=== PATIENT | female | born 1950 | race Caucasian/White ===

== ENCOUNTER → 2017-04-10 | Outpatient (CLI) | payer MEDICARE ==
[~2017-04-10] MED LIST: KEFLEX 500MG.500 MG PO; VIBRAMYCIN 100100 MG PO
--- NOTE | 2017-04-10 20:30 | RADIOLOGY REPORT PS360 ---
LUMBAR SPINE 5 VIEWS HISTORY: LOW BACK PAIN Patient Age: 66 years: Female Ordering Physician: MEI GARDNER TECHNIQUE: 5 view lumbar spine series COMPARISON :Previous lumbar spine series from 2009 FINDINGS Multilevel degenerative disc changes and disc space narrowing . Generous marginal osteophytes throughout the spine. These are particularly notable to the left at L1/2, L2/3, L4/5 . L5/S1. Disc space narrowing with vacuum phenomena most pronounced at this level & has shown progression since 2012 . Prominent Degenerative facet changes bilaterally also noted L4/5. Generous anterior marginal osteophytes which extend to the left more than right. Less pronounced degenerative facet changes. L3/ 4 Slight trace disc space narrowing posteriorly at L3/4 . Anterior marginal osteophytes L2/3 prominent anterior marginal osteophytes. Generous marginal osteophytes to the left . L1/2. Only Slight disc space narrowing posteriorly.. Marginal osteophytes most pronounced to the left the left T12/L1. Disc space narrowing and vacuum phenomena IMPRESSION: Multilevel degenerative disc changes. Generous marginal osteophytes throughout spine Progressive disc space narrowing and changes since 2012 most notable at L5/S1. Prominent facet arthropathy at this level noted as well
== END ==
LOC: RAD 16:21
DX: M54.5 Low back pain (principal)

== ENCOUNTER 2017-05-08 11:34 | Emergency (ER) | payer MEDICARE ==
[~2017-05-08] VITALS: Ht 167.6 cm; Wt 129.3 kg
[2017-05-08] MEDS ORDERED: METOPROLOL25 MG PO (11:44)
[2017-05-08] MEDS ORDERED: SPIRONOLACTONE25 MG NG (11:44)
[2017-05-08] MEDS ORDERED: JANUVIA50 MG PO (11:44)
[2017-05-08] MEDS ORDERED: AMLO2.5T PO (11:45)
[2017-05-08] MEDS ORDERED: GABAPENTIN300 MG PO (11:45)
[2017-05-08] MEDS ORDERED: PRAVACHOL 20MG.20 MG PO (11:45)
[2017-05-08] MEDS ORDERED: MYRBETRIQ25 MG PO (11:46)
[2017-05-08] MEDS ORDERED: VALSARTAN160 MG PO (11:46)
[2017-05-08] MEDS ORDERED: METFORMIN1000 MG PO (11:47)
--- OUTSIDE RECORDS SUMMARY | 2017-05-08 12:04 | External Medical Summary Rpt | CCD ---
Author Author , MAGUI KILGORE Address Unknown Phone [email or web address] Care Team Providers Care Scallop Binder Name Role Phone DONNY BOB, Unavailable Unavailable DONNY BOB [facility] Unavailable Unavailable INC, [facility] NASIMA LOWE HARVEY, Unavailable Unavailable [facility], Unavailable Unavailable [facility] [place] [facility] USZY SOLIMAN JR Unavailable Unavailable Anat, SUZY SOLIMAN JR PATHOLOGY & CYTOLOGY Unavailable Unavailable LAB, PATHOLOGY & CYTOLOGY LAB VAIBHAV KOROMA, Unavailable Unavailable VAIBHAV KOROMA JEFF A, Unavailable Unavailable СЕРГЕЙ ANGUIANO [facility] [id number], Unavailable Unavailable [facility] [id number] [facility] Unavailable Unavailable #[id number], [facility] #[id number] [facility] Unavailable Unavailable #591, [facility] #591 Purpose Continuity of Care Document - 10-16-2007 through 2016 Problems Code Diagnosis DOS Provider Status 64053 METHICILLIN 01-10-2008 VAIBHAV KOROMA SUSCEPTIBLE STAPH INF CCE & UNS SITE 51477 DIAB W/O 01-10-2008 [place] COMP TYPE VAIBHAV II/UNS NOT STATED UNCNTRL 6822 CELLULITIS 01-10-2008 GA, AND ABSCESS VAIBHAV OF TRUNK 6829 CELLULITIS 01-10-2008 [place] AND ABSCESS [facility] UNSPECIFIED MED SITE V090 INFECTION 01-10-2008 Rey KOROMA/MICROORGA VAIBHAV NISMS RESISTANT PENICILLINS 2724 OTHER AND 12-25-2007 [facility] HYPERLIPIDE KENISHA 4019 UNSPECIFIED 12-25-2007 [facility] HYPERTENSIO INC N 4618 OTHER ACUTE 11-22-2007 [facility] 0191 UNSPECIFIED 11-22-2007 [facility] 01819 OTHER 11-09-2007 [facility] SPECIFIED PRIMARY ERYTHEMATOU CARE S CONDITION CENTERINC OTHER 29068 OSTEOARTHRO 04-25-2008 [facility] S UNSPEC PRIMARY WHETHER CARE GEN/LOC CENTERINC UNSPEC SITE 4660 ACUTE 10-16-2007 [facility] Medications Na ND Rx Da Fi Fi Am Da Di Ph RX Ph St me C No te ll ll ou ys ag ar # ys at rm s nt no ma ic us Or Da si cy ia de te s n re d TR 00 05 07 00 18 22 WA 69 Ac AM 37 -0 -0 0. L- 75 TT ti AD 84 8- 3- 00 MA 08 MA ve OL 15 20 20 0 RT 9 N 10 08 08 NA HC 1 PH NC L AR Y 50 MA E CY MG #5 TA 91 BL ET 00 06 07 00 30 7 WA 44 No Ac 40 -1 -0 .0 L- 68 t ti 60 6- 3- 00 MA 88 Av ve 35 20 20 RT 5 ai 70 08 08 la 5 PH bl AR e MA CY #5 91 ME 00 05 07 00 90 30 WA 69 Ac TF 78 -0 -0 .0 L- 77 TT ti OR 15 8- 3- 00 MA 33 MA ve DE 05 20 20 RT 0 N N 06 08 08 NA HC 1 PH NC L AR Y 50 MA E 0 CY MG #5 TA 91 BL ET WAN 53 06 07 00 20 10 WA 69 No Ac LF 74 -1 -0 .0 L- 76 t ti AM 60 6- 3- 00 MA 02 Av ve ET 27 20 20 RT 4 ai HO 20 08 08 la XA 5 PH bl ZO AR e LE MA -T CY MP #5 DS 91 TA BL ET MD 00 06 07 00 15 3 WA 69 No Ac OM 78 -1 -0 .0 L- 76 t ti ET 11 6- 3- 00 MA 02 Av ve BANEGAS 83 20 20 RT 5 ai ZI 20 08 08 la NE 1 PH bl AR e 50 MA CY MG #5 TA 91 BL ET 00 06 07 01 30 7 WA 44 No Ac 40 -1 -0 .0 L- 68 t ti 60 6- 3- 00 MA 88 Av ve 35 20 20 RT 5 ai 70 08 08 la 5 PH bl AR e MA CY #5 91 [place] 51 04 06 00 30 [address] 67 -2 -1 .0 L- 75 TT ti AT 21 5- 2- 00 MA 07 MA ve IN 28 20 20 RT 5 N 90 08 08 NA 10 2 PH NC 0, AR Y 00 MA E 0 CY UN IT #5 /G 91 M CR EA M LI 54 02 06 02 12 30 WA 73 Ac SI 45 -0 -0 0. L- 26 TT ti NO 80 4- 5- 00 MA 96 MA ve MD 99 20 20 0 RT 9 N IL 61 08 08 NA 0 PH NC 20 A1 Y 0- E MG 15 69 TA BL ET DI 00 04 06 02 30 30 WA 73 Ac OV 07 -0 -0 .0 L- 37 TT ti AN 80 1- 5- 00 MA 28 MA ve 47 20 20 RT 9 N HC 13 08 08 NA T 4 PH NC 32 A1 Y 0- 0- E 12 15 .5 69 MG TA B FU 00 11 06 02 60 30 WA 73 Ac RO 37 -1 -0 .0 L- 13 TT ti SE 80 2- 5- 00 MA 09 MA ve DE 20 20 20 RT 5 N DE 80 07 08 NA 1 PH NC 20 A1 Y 0- E MG 15 69 TA BL ET OX 50 02 06 02 60 20 WA 73 Ac YB 11 -0 -0 .0 L- 26 TT ti UT 10 4- 5- 00 MA 97 MA ve YN 45 20 20 RT 0 N IN 60 08 08 NA 5 1 PH NC A1 Y MG 0- E 15 TA 69 BL ET GL 00 12 06 02 12 30 WA 73 Ac YB 09 -0 -0 0. L- 17 TT ti UR 38 6- 5- 00 MA 50 MA ve ID 34 20 20 0 RT 8 N E 40 07 08 NA 5 1 PH NC MG A1 Y 0- E TA 15 BL 69 ET 63 05 05 00 30 10 WA 73 No Ac 30 -0 -2 .0 L- 43 t ti 40 8- 2- 00 MA 91 Av ve 65 20 20 RT 8 ai 80 08 08 la 1 PH bl AR e MA CY #1 56 9 ME 00 05 05 00 90 30 WA 73 No Ac TF 78 -0 -2 .0 L- 43 t ti OR 15 8- 2- 00 MA 91 Av ve DE 05 20 20 RT 9 ai N 06 08 08 la HC 1 PH bl L AR e 50 MA 0 CY MG #1 TA 56 BL 9 ET TR 00 05 05 00 18 26 WA 73 No Ac AM 37 -0 -2 0. L- 43 t ti AD 84 8- 2- 00 MA 92 Av ve OL 15 20 20 0 RT 0 ai 10 08 08 la HC 1 PH bl L AR e 50 MA CY MG #1 TA 56 BL 9 ET 63 04 05 00 30 10 73 No Ac 30 -2 -0 .0 L- 41 t ti 40 5- 8- 00 MA 69 Av ve 65 20 20 RT 3 ai 90 08 08 la 1 PH bl A1 e 0- 15 69 00 12 05 01 30 30 WA 73 No Ac 24 -0 -0 .0 L- 17 t ti 50 6- 8- 00 MA 50 Av ve 04 20 20 RT 9 ai 11 07 08 la 1 PH bl A1 e 0- 15 69 GL 00 12 05 01 12 30 73 No Ac YB 09 -0 -0 0. L- 17 t ti UR 38 6- 8- 00 MA 50 Av ve ID 34 20 20 0 RT 8 ai E 40 07 08 la 5 1 PH bl MG A1 e 0- TA 15 BL 69 ET DI 00 04 05 01 30 30 73 No Ac OV 07 -0 -0 .0 L- 37 t ti AN 80 1- 8- 00 MA 28 Av ve 47 20 20 RT 9 ai HC 13 08 08 la T 4 PH bl 32 A1 e 0- 0- 12 15 .5 69 MG TA B FU 00 11 05 01 60 30 73 No Ac RO 37 -1 -0 .0 L- 13 t ti SE 80 2- 8- 00 MA 09 Av ve DE 20 20 20 RT 5 ai DE 80 07 08 la 1 PH bl 20 A1 e 0- MG 15 69 TA BL ET TR 00 04 05 01 10 12 73 No Ac AM 37 -0 -0 0. L- 37 t ti AD 84 1- 8- 00 MA 29 Av ve OL 15 20 20 0 RT 4 ai 10 08 08 la HC 1 PH bl L A1 e 50 0- 15 MG 69 TA BL ET LI 54 02 05 01 12 30 73 No Ac SI 45 -0 -0 0. L- 26 t ti NO 80 4- 8- 00 MA 96 Av ve MD 99 20 20 0 RT 9 ai IL 61 08 08 la 0 PH bl 20 A1 e 0- MG 15 69 TA BL ET OX 50 02 05 01 60 20 WA 73 No Ac YB 11 -0 -0 .0 L- 26 t ti UT 10 4- 8- 00 MA 97 Av ve YN 45 20 20 RT 0 ai IN 60 08 08 la 5 1 PH bl A1 e MG 0- 15 TA 69 BL ET ME 00 04 05 00 60 30 WA 73 No Ac TF 78 -2 -0 .0 L- 41 t ti OR 15 5- 8- 00 MA 69 Av ve DE 05 20 20 RT 4 ai N 06 08 08 la HC 1 PH bl L A1 e 50 0- 0 15 MG 69 TA BL ET 00 12 04 00 30 30 WA 73 No Ac 24 -0 -1 .0 L- 17 t ti 50 6- 0- 00 MA 50 Av ve 04 20 20 RT 9 ai 11 07 08 la 1 PH bl A1 e 0- 15 69 GL 00 12 04 00 12 30 73 No Ac YB 09 -0 -1 0. L- 17 t ti UR 38 6- 0- 00 MA 50 Av ve ID 34 20 20 0 RT 8 ai E 40 07 08 la 5 1 PH bl MG A1 e 0- TA 15 BL 69 ET 63 04 04 00 20 10 73 No Ac 30 -0 -1 .0 L- 37 t ti 40 1- 0- 00 MA 29 Av ve 72 20 20 RT 1 ai 66 08 08 la 0 PH bl A1 e 0- 15 69 DI 00 04 04 00 30 30 73 No Ac OV 07 -0 -1 .0 L- 37 t ti AN 80 1- 0- 00 MA 28 Av ve 47 20 20 RT 9 ai HC 13 08 08 la T 4 PH bl 32 A1 e 0- 0- 12 15 .5 69 MG TA B TR 00 04 04 00 10 12 WA 73 No Ac AM 37 -0 -1 0. L- 37 t ti AD 84 1- 0- 00 MA 29 Av ve OL 15 20 20 0 RT 4 ai 10 08 08 la HC 1 PH bl L A1 e 50 0- 15 MG 69 TA BL ET OX 50 02 04 00 60 20 73 No Ac YB 11 -0 -1 .0 L- 26 t ti UT 10 4- 0- 00 MA 97 Av ve YN 45 20 20 RT 0 ai IN 60 08 08 la 5 1 PH bl A1 e MG 0- 15 TA 69 BL ET FU 00 11 04 00 60 30 73 No Ac RO 37 -1 -1 .0 L- 13 t ti SE 80 2- 0- 00 MA 09 Av ve DE 20 20 20 RT 5 ai DE 80 07 08 la 1 PH bl 20 A1 e 0- MG 15 69 TA BL ET 17 04 04 00 17 23 73 No Ac 27 -0 -1 .0 L- 37 t ti 00 1- 0- 00 MA 29 Av ve 72 20 20 RT 3 ai 10 08 08 la 1 PH bl A1 e 0- 15 69 LI 00 02 04 00 12 30 WA 73 No Ac SI 37 -0 -1 0. L- 26 t ti NO 82 4- 0- 00 MA 96 Av ve MD 07 20 20 0 RT 9 ai IL 50 08 08 la 1 PH bl 20 A1 e 0- MG 15 69 TA BL ET Procedures Procedure DOS Code Location Performer Comment HOSPITAL [address] [facility] DIS[facility]GE [address] [place] [address] [facility]NAL [facility] MANAGEMEN MED T 30 MIN/< SBSQ [id number]/DAY INTERNAL [facility] 25 MED MINUTES SBSQ [address]/DAY [facility]NAL [facility] 25 MED MINUTES ANES 83721 [facility] [place] ANGUIANO 8 ANESTH СЕРГЕЙ A EXTREMITI OF THE ANT BLUEGRASS TRUNK & PERINEUM NOS LEVEL III 32464 PATHOLOGY PATHOLOGY SURG 8 & & PATHOLOGY CYTOLOGY CYTOLOGY LAB LAB GROSS&JAYMIE ROSCOPIC EXAM INCISION 21177 [place] K[place]OMA & VAIBHAV Barnett KARL DRAINAGE ABSCESS COMPLICAT ED/MULTIP LE SBSQ [address]/DAY INTERNAL [facility] 25 MED MINUTES OTH 8604 [facility] INCISION 8 [facility] W/DRAINAG INC INC E SKIN&SUBC UTANEOUS TISSUE EXCISIONA 8622 [facility]PENTERON L 8 [facility] DEBRIDEME INC INC NT WOUND INFECTION OR BURN SBSQ [address]/DAY INTERNAL [facility] 25 MED MINUTES INITIAL 51343 [place] INPATIENT 8 , VAIBHAV ESPOSITO CONSULT NEW/ESTAB PT 80 MIN SBSQ [address] CARE/DAY INTERNAL 25 MED MINUTES INITIAL [address] CARE/DAY INTERNAL 50 MED MINUTES CREATINE 18692 [facility] [place] 8 [place] [address] [facility] MAGNESIUM 8 [facility] LIPID 99108 [facility] PANEL 8 [facility] HEMOGLOBI 00035 [facility] N 8 [facility] GLYCOSYLA MARY A1C COLLECTIO 88808 [place] DODD VENOUS 8 PRIMARY DONNY E BLOOD CARE VENIPUNCT CENTERINC URE COMPREHEN 99015 [facility] SIVE 8 [facility] METABOLIC PANEL Encounters Encounter Start End Date Code Location Performer Type Date OFFICE 70958 [place] JUORDAN CARBONEEN 8 8 NICOLÁS ESTRELLA, T VISIT [facility]NAL [facility] 15 [facility] - 8 8 [facility] INPATIENT INC OFFICE 22740 [facility] DODD 8 8 [facility] E T VISIT CARE 25 CENTERINC MINUTES OFFICE 33921 [facility] D[facility]D 8 8 [facility] T VISIT CARE 25 CENTERINC MINUTES OFFICE 83085 [facility] DODD 8 8 [facility]IMARY DONNY E T NEW 30 CARE MINUTES CENTERINC
--- OUTSIDE RECORDS SUMMARY | 2017-05-08 12:04 | External Medical Summary Rpt | CCD ---
Author Author , MAGUI KILGORE Address Unknown Phone [email or web address] Care Team Providers Care Biogeographer Name Role Phone DONNY BOB, Unavailable Unavailable DONNY BOB [facility] Unavailable Unavailable INC, [facility] NASIMA LOWE HARVEY, Unavailable Unavailable [facility] [employer] [facility], Unavailable Unavailable [facility] [place] [facility] SUZY SOLIMAN JR Unavailable Unavailable Anat, SUZY SOLIMAN JR PATHOLOGY & CYTOLOGY Unavailable Unavailable LAB, PATHOLOGY & CYTOLOGY LAB VAIBHAV KOROMA, Unavailable Unavailable VAIBHAV KOROMA JEFF A, Unavailable Unavailable СЕРГЕЙ ANGUIANO [facility] [id number], Unavailable Unavailable [facility] [id number] [facility] Unavailable Unavailable #1569, [facility] #1569 [facility] Unavailable Unavailable #591, [facility] #591 Purpose Continuity of Care Document - 10-16-2007 through 2016 Problems Code Diagnosis DOS Provider Status 37824 METHICILLIN 01-10-2008 VAIBHAV KOROMA SUSCEPTIBLE STAPH INF CCE & UNS SITE 65563 DIAB W/O 01-10-2008 [place] COMP TYPE VAIBHAV [...] 11-22-2007 [facility] 9591 UNSPECIFIED 11-22-2007 [facility] 61770 OTHER 11-09-2007 [facility] SPECIFIED PRIMARY ERYTHEMATOU CARE S CONDITION CENTERINC OTHER 22473 OSTEOARTHRO 04-25-2008 [facility] S UNSPEC PRIMARY [...] 8- 3- 00 MA 33 MA ve MS 05 20 20 RT 0 N N [...] MP #5 DS 91 TA BL ET NE 00 06 07 00 15 3 WA [...] 4- 5- 00 MA 96 MA ve NE 99 20 20 0 RT 9 N [...] 2- 5- 00 MA 09 MA ve MS 20 20 20 RT 5 N DE [...] 8- 2- 00 MA 91 Av ve MS 05 20 20 RT 9 ai N [...] 2- 8- 00 MA 09 Av ve MS 20 20 20 RT 5 ai DE [...] 4- 8- 00 MA 96 Av ve NE 99 20 20 0 RT 9 ai [...] 5- 8- 00 MA 69 Av ve MS 05 20 20 RT 4 ai N [...] 2- 0- 00 MA 09 Av ve MS 20 20 20 RT 5 ai DE [...] 4- 0- 00 MA 96 Av ve NE 07 20 20 0 RT 9 ai IL 50 08 08 la 1 PH bl 20 A1 e 0- MG 15 69 TA BL ET Procedures Procedure DOS Code Location Performer Comment HOSPITAL [address] [facility] DISCHARGE [address] [place] [address] INTERNAL [facility] MANAGEMEN MED T 30 MIN/< SBSQ [address]/DAY [facility]NAL [facility] 25 MED MINUTES SBSQ [address]/DAY [facility] 25 MED MINUTES ANES 34071 [facility] [place] ANGUIANO 8 ANESTH СЕРГЕЙ A EXTREMITI OF THE ANT BLUEGRASS TRUNK & PERINEUM NOS LEVEL III 84397 PATHOLOGY PATHOLOGY SURG 8 & & PATHOLOGY CYTOLOGY CYTOLOGY LAB LAB GROSS&JAYMIE ROSCOPIC EXAM INCISION 56266 [place] & VAIBHAV Barnett KARL DRAINAGE ABSCESS COMPLICAT ED/MULTIP LE SBSQ [address]/DAY [facility] 25 MED MINUTES OTH 8604 [facility] VAZQUEZ INCISION 8 [facility] W/DRAINAG INC INC E SKIN&SUBC UTANEOUS TISSUE EXCISIONA 8622 [facility] L 8 [facility] DEBRIDEME INC INC NT WOUND INFECTION OR BURN SBSQ [address]/DAY [facility] 25 MED MINUTES INITIAL 51169 [place] INPATIENT 8 , VAIBHAV ESPOSITO CONSULT NEW/ESTAB PT 80 MIN SBSQ [address] CARE/DAY INTERNAL 25 MED MINUTES INITIAL [address] CARE/DAY INTERNAL 50 MED MINUTES CREATINE 20034 [facility] 8 [place] [address] [facility] MAGNESIUM 8 [facility] LIPID 39521 [facility] PANEL 8 [facility] HEMOGLOBI 41361 [facility] N 8 [facility] GLYCOSYLA MARY A1C COLLECTIO 12943 [place] DODD VENOUS 8 PRIMARY DONNY E BLOOD CARE VENIPUNCT CENTERINC URE COMPREHEN 76760 [facility] SIVE 8 [facility] METABOLIC PANEL Encounters Encounter Start End Date Code Location Performer Type Date OFFICE 44392 [place] JOURDAN CARBONEEN 8 8 NICOLÁS ESTRELLA, T VISIT [facility]NAL [facility] 15 [facility] - 8 8 [facility] INPATIENT INC OFFICE 05668 THAIS DODD 8 8 PRIMARY DONNY E T VISIT CARE 25 CENTERINC MINUTES OFFICE 18101 TH[facility] DODD 8 8 [facility]IMARY DONNY E T VISIT CARE 25 CENTERINC MINUTES OFFICE 13075 TH[facility] DODD 8 8 PRIMARY DONNY E T NEW 30 CARE MINUTES CENTERINC
--- OUTSIDE RECORDS SUMMARY | 2017-05-08 12:05 | External Medical Summary Rpt | CCD ---
Author Author , MAGUI MCBRIDEFLAKO Address Unknown Phone [email or web address] Care Team Providers Care Chick Room Supervisor Name Role Phone DONNY BOB, Unavailable Unavailable DONNY BOB [facility] Unavailable Unavailable INC, [facility] NASIMA LOWE HARVEY, Unavailable Unavailable [facility] [employer] [facility], Unavailable Unavailable [facility] [place] [facility] SUZY SOLIMAN JR Unavailable Unavailable Anat, SUZY SOLIMAN JR PATHOLOGY & CYTOLOGY Unavailable Unavailable LAB, PATHOLOGY & CYTOLOGY LAB VAIBHAV KOROMA, Unavailable Unavailable VAIBHAV KOROMA JEFF A, Unavailable Unavailable СЕРГЕЙ ANGUIANO [facility] [id number], Unavailable Unavailable [facility] [id number] [facility] Unavailable Unavailable #1569, [facility] #1569 [facility] Unavailable Unavailable #591, [facility] #591 Purpose Continuity of Care Document - 10-16-2007 through 2016 Problems Code Diagnosis DOS Provider Status 61667 METHICILLIN 01-10-2008 VAIBHAV KOROMA SUSCEPTIBLE STAPH INF CCE & UNS SITE 87438 DIAB W/O 01-10-2008 [place] COMP TYPE VAIBHAV [...] 11-22-2007 [facility] 7291 UNSPECIFIED 11-22-2007 [facility] 65162 OTHER 11-09-2007 [facility] CO SPECIFIED PRIMARY ERYTHEMATOU CARE S CONDITION CENTERINC OTHER 45134 OSTEOARTHRO 11-09-2007 [facility] CO S UNSPEC PRIMARY WHETHER CARE GEN/LOC CENTERINC UNSPEC SITE 4660 ACUTE 10-16-2007 [facility] Medications Na ND Rx Da Fi Fi Am Da Di Ph RX Ph St me C No te ll ll ou ys ag ar # ys at rm s nt no ma ic us Or Da si cy ia de te s n re d ME 00 05 07 00 90 30 WA 69 Ac TF 78 -0 -0 .0 L- 77 TT ti OR 15 8- 3- 00 MA 33 MA ve IL 05 20 20 RT 0 N N 06 08 08 NA HC 1 PH NC L AR Y 50 MA E 0 CY MG #5 TA 91 BL ET TR 00 05 07 00 18 22 [...] bl AR e MA CY #5 91 WAN 53 06 07 00 20 10 WA 69 No Ac LF 74 -1 -0 .0 L- 76 t ti AM 60 6- 3- 00 MA 02 Av ve ET 27 20 20 RT 4 ai HO 20 08 08 la XA 5 PH bl ZO AR e LE MA -T CY MP #5 DS 91 TA BL ET VT 00 06 07 00 15 3 WA [...] 4- 5- 00 MA 96 MA ve VT 99 20 20 0 RT 9 N IL 61 08 08 NA 0 PH NC 20 A1 Y 0- E MG 15 69 TA BL ET GL 00 12 06 02 12 30 WA 73 Ac YB 09 -0 -0 0. L- 17 TT ti UR 38 6- 5- 00 MA 50 MA ve ID 34 20 20 0 RT 8 N E 40 07 08 NA 5 1 PH NC MG A1 Y 0- E TA 15 BL 69 ET DI 00 04 06 02 30 [...] 2- 5- 00 MA 09 MA ve IL 20 20 20 RT 5 N DE [...] 0- E 15 TA 69 BL ET 63 05 05 00 30 10 [...] 8- 2- 00 MA 91 Av ve IL 05 20 20 RT 9 ai N [...] MG #1 TA 56 BL 9 ET ME 00 04 05 00 60 30 WA 73 No Ac TF 78 -2 -0 .0 L- 41 t ti OR 15 5- 8- 00 MA 69 Av ve IL 05 20 20 RT 4 ai N 06 08 08 la HC 1 PH bl L A1 e 50 0- 0 15 MG 69 TA BL ET FU 00 11 05 01 60 30 WA 73 No Ac RO 37 -1 -0 .0 L- 13 t ti SE 80 2- 8- 00 MA 09 Av ve IL 20 20 20 RT 5 ai DE 80 07 08 la 1 PH bl 20 A1 e 0- MG 15 69 TA BL ET LI 54 02 05 01 12 30 WA 73 No Ac SI 45 -0 -0 0. L- 26 t ti NO 80 4- 8- 00 MA 96 Av ve VT 99 20 20 0 RT 9 ai IL 61 08 08 la 0 PH bl 20 A1 e 0- MG 15 69 TA BL ET GL 00 12 05 01 12 30 WA 73 No Ac YB 09 -0 -0 0. L- 17 t ti UR 38 6- 8- 00 MA 50 Av ve ID 34 20 20 0 RT 8 ai E 40 07 08 la 5 1 PH bl MG A1 e 0- TA 15 BL 69 ET 63 04 05 00 30 10 WA 73 No Ac 30 -2 -0 .0 L- 41 t ti 40 5- 8- 00 MA 69 Av ve 65 20 20 RT 3 ai 90 08 08 la 1 PH bl A1 e 0- 15 69 DI 00 04 05 01 30 30 WA 73 No Ac OV 07 -0 -0 .0 L- 37 t ti AN 80 1- 8- 00 MA 28 Av ve 47 20 20 RT 9 ai HC 13 08 08 la T 4 PH bl 32 A1 e 0- 0- 12 15 .5 69 MG TA B TR 00 04 05 01 10 12 WA 73 No Ac AM 37 -0 -0 [...] MG 0- 15 TA 69 BL ET 00 12 05 01 30 30 73 No Ac 24 -0 -0 .0 L- 17 t ti 50 6- 8- 00 MA 50 Av ve 04 20 20 RT 9 ai 11 07 08 la 1 PH bl A1 e 0- 15 69 OX 50 02 04 00 60 20 WA 73 No Ac YB 11 -0 -1 .0 L- 26 t ti UT 10 4- 0- 00 MA 97 Av ve YN 45 20 20 RT 0 ai IN 60 08 08 la 5 1 PH bl A1 e MG 0- 15 TA 69 BL ET DI 00 04 04 00 30 30 WA 73 No Ac OV 07 -0 -1 .0 L- 37 t ti AN 80 1- 0- 00 MA 28 Av ve 47 20 20 RT 9 ai HC 13 08 08 la T 4 PH bl 32 A1 e 0- 0- 12 15 .5 69 MG TA B GL 00 12 04 00 12 30 [...] PH bl A1 e 0- 15 69 17 04 04 00 17 23 WA 73 No Ac 27 -0 -1 .0 L- 37 t ti 00 1- 0- 00 MA 29 Av ve 72 20 20 RT 3 ai 10 08 08 la 1 PH bl A1 e 0- 15 69 TR 00 04 04 00 10 12 73 No Ac AM 37 -0 -1 0. L- 37 t ti AD 84 1- 0- 00 MA 29 Av ve OL 15 20 20 0 RT 4 ai 10 08 08 la HC 1 PH bl L A1 e 50 0- 15 MG 69 TA BL ET FU 00 11 04 00 60 30 73 No Ac RO 37 -1 -1 .0 L- 13 t ti SE 80 2- 0- 00 MA 09 Av ve IL 20 20 20 RT 5 ai DE 80 07 08 la 1 PH bl 20 A1 e 0- MG 15 69 TA BL ET LI 00 02 04 00 12 30 73 No Ac SI 37 -0 -1 0. L- 26 t ti NO 82 4- 0- 00 MA 96 Av ve VT 07 20 20 0 RT 9 ai IL 50 08 08 la 1 PH bl 20 A1 e 0- MG 15 69 TA BL ET 00 12 04 00 30 30 WA 73 No Ac 24 -0 -1 .0 L- 17 t ti 50 6- 0- 00 MA 50 Av ve 04 20 20 RT 9 ai 11 07 08 la 1 PH bl A1 e 0- 15 69 Procedures Procedure DOS Code Location Performer Comment [facility] [address] [facility] DISCHARGE [address] [place] [address] INTERNAL [facility] MANAGEMEN MED T 30 MIN/< SBSQ [address]/DAY INTERNAL [facility] 25 MED MINUTES SBSQ [address]/DAY INTERNAL [facility] 25 MED MINUTES SBSQ [address]/DAY INTERNAL [facility] 25 MED MINUTES ANES 99982 [facility] ANGUIANO 8 ANESTH СЕРГЕЙ A EXTREMITI OF THE ANT BLUEGRASS TRUNK & PERINEUM NOS OTH 8604 [facility] INCISION 8 [facility] W/DRAINAG INC INC E SKIN&SUBC UTANEOUS TISSUE EXCISIONA 8622 [facility] L 8 [facility] DEBRIDEME INC INC NT WOUND INFECTION OR BURN LEVEL III 85805 PATHOLOGY PATHOLOGY SURG 8 & & PATHOLOGY CYTOLOGY CYTOLOGY LAB LAB GROSS&JAYMIE ROSCOPIC EXAM INCISION 95741 [place] & VAIBHAV Barnett KARL DRAINAGE ABSCESS COMPLICAT ED/MULTIP LE INITIAL 09784 [place] INPATIENT VAIBHAV Barnett KARL CONSULT NEW/ESTAB PT 80 MIN SBSQ [address]/DAY INTERNAL [facility] 25 MED MINUTES SBSQ [address] CARE/DAY INTERNAL 25 MED MINUTES INITIAL [address] CARE/DAY INTERNAL 50 MED MINUTES HEMOGLOBI 51270 [facility] N 8 [place] [facility] GLYCOSYLA MARY A1C LIPID 49447 [facility] PANEL 8 [facility] CREATINE 97438 [facility] KINASE 8 [facility] [address] [facility] MAGNESIUM 8 [facility] COLLECTIO 66654 Bora DODD VENOUS 8 PRIMARY DONNY E BLOOD CARE VENIPUNCT CENTERINC URE COMPREHEN 52709 [facility] SIVE 8 [facility] METABOLIC PANEL Encounters Encounter Start End Date Code Location Performer Type Date OFFICE 28353 [place] AYANNADAKOTAHussain PLASCENCIA 8 8 NICOLÁS JR, T VISIT [facility] [place] - 8 8 [facility] IN[facility] INC OFFICE [id number] THAIS DODD 8 8 PRIMARY DONNY E T VISIT CARE 25 CENTERINC MINUTES OFFICE 19933 THAIS DODD 8 8 PRIMARY DONNY E T VISIT CARE 25 CENTERINC MINUTES OFFICE 41777 THAIS DODD 8 8 PRIMARY DONNY E T NEW 30 CARE MINUTES CENTERINC
--- OUTSIDE RECORDS SUMMARY | 2017-05-08 12:05 | External Medical Summary Rpt | CCD ---
Author Author , MAGUI MCBRIDEFLAKO Address Unknown Phone [email or web address] Team Providers Care Brim Blocker Name Role Phone DONNY BOB, Unavailable Unavailable DONNY BOB [facility] Unavailable Unavailable INC, [facility] NASIMA LOWE HARVEY, Unavailable Unavailable [facility], Unavailable Unavailable [facility] SUZY SOLIMAN JR Unavailable Unavailable Anat, SUZY SOLIMAN JR [facility] Unavailable Unavailable LAB, [facility] VAIBHAV KOROMA, Unavailable Unavailable VAIBHAV KOROMA JEFF A, Unavailable Unavailable СЕРГЕЙ ANGUIANO [facility] [id number], Unavailable Unavailable [facility] [id number] [facility] Unavailable Unavailable #[id number], [id number] Unavailable Unavailable #591, [facility] Purpose Continuity of Care Document - 10-16-2007 through 2016 Problems Code Diagnosis DOS Provider Status 47891 METHICILLIN 01-10-2008 VAIBHAV KOROMA SUSCEPTIBLE STAPH INF CCE & UNS SITE 53731 DIAB W/O 01-10-2008 [place] COMP TYPE VAIBHAV [...] [facility] 27284 OTHER 11-09-2007 [place] [place] SPECIFIED PRIMARY ERYTHEMATOU CARE S CONDITION [facility] OTHER 60834 OSTEOARTHRO 11-09-2007 [place] [place] S UNSPEC PRIMARY [...] 8- 3- 00 MA 33 MA ve WV 05 20 20 RT 0 N N [...] MP #5 DS 91 TA BL ET [place] 00 06 07 00 15 3 WA [...] 4- 5- 00 MA 96 MA ve [place] 99 20 20 0 RT 9 N [...] 2- 5- 00 MA 09 MA ve WV 20 20 20 RT 5 N DE [...] 8- 2- 00 MA 91 Av ve WV 05 20 20 RT 9 ai N [...] 5- 8- 00 MA 69 Av ve WV 05 20 20 RT 4 ai N 06 08 08 la HC 1 PH bl L A1 e 50 0- 0 15 MG 69 TA BL ET FU 00 11 05 01 60 30 WA 73 No Ac RO 37 -1 -0 .0 L- 13 t ti SE 80 2- 8- 00 MA 09 Av ve WV 20 20 20 RT 5 ai DE 80 07 08 la 1 PH bl 20 A1 e 0- MG 15 69 TA BL ET LI 54 02 05 01 12 30 WA 73 No Ac SI 45 -0 -0 0. L- 26 t ti NO 80 4- 8- 00 MA 96 Av ve [place] 99 20 20 0 RT 9 ai [...] 2- 0- 00 MA 09 Av ve WV 20 20 20 RT 5 ai DE 80 07 08 la 1 PH bl 20 A1 e 0- MG 15 69 TA BL ET LI 00 02 04 00 12 30 73 No Ac SI 37 -0 -1 0. L- 26 t ti NO 82 4- 0- 00 MA 96 Av ve [place] 07 20 20 0 RT 9 ai [...] Procedures Procedure DOS Code Location Performer Comment [facility] [address] [facility] DISCHARGE [address] [place] [address] INTERNAL [facility] MANAGEMEN MED T 30 MIN/< SBSQ [id number]/DAY [facility]NAL [facility] 25 MED MINUTES SBSQ [address]/DAY [facility]NAL [facility] 25 MED MINUTES SBSQ [address]/DAY [facility] 25 MED MINUTES ANES 21276 [facility] ANGUIANO 8 ANESTH СЕРГЕЙ A EXTREMITI OF THE ANT [place]UE[place]ASS TRUNK & PERINEUM NOS OTH 8604 [facility] W/DRAINAG INC INC E SKIN&SUBC UTANEOUS TISSUE EXCISIONA 8622 [facility] L 8 [facility] DEBRIDEME INC INC NT WOUND INFECTION OR BURN LEVEL III 48237 PATHOLOGY PATHOLOGY SURG 8 & & PATHOLOGY CYTOLOGY CYTOLOGY LAB LAB GROSS&JAYMIE ROSCOPIC EXAM INCISION 49187 GA KOROMA & VAIBHAV Barnett KARL DRAINAGE ABSCESS COMPLICAT ED/MULTIP LE INITIAL 18704 GA KOROMA INPATIENT VAIBHAV Barnett KARL CONSULT NEW/ESTAB PT 80 MIN SBSQ [id number]/DAY INTERNAL [facility] 25 MED MINUTES SBSQ [address] CARE/DAY INTERNAL 25 MED MINUTES INITIAL [id number] CARE/DAY INTERNAL 50 MED MINUTES HEMOGLOBI 02619 [facility] N [facility] [facility] GLYCOSYLA MARY A1C LIPID 06709 [facility] PANEL 8 [facility] CREATINE 33818 [facility] KINASE 8 [facility] [place] [address] [facility] MAGNESIUM 8 [facility] COLLECTIO 32747 Bora DODD VENOUS 8 PRIMARY DONNY E BLOOD CARE VENIPUNCT CENTERINC URE COMPREHEN 59234 [facility] SIVE 8 [facility] METABOLIC PANEL Encounters Encounter Start End Date Code Location Performer Type Date OFFICE 71065 [place] AYANNADAKOTAHussain PLASCENCIA 8 8 NICOLÁS JR, T VISIT INTERNAL [facility] 15 [facility] - 8 8 [facility] OFFICE 42991 THAIS DODD 8 8 PRIMARY DONNY E T VISIT CARE 25 [facility]ENTERINC MINUTES OFFICE 84691 THAIS DODD 8 8 PRIMARY DONNY E T VISIT CARE 25 [facility]ENTER[facility] MINUTES OFFICE 70035 THAIS DODD 8 8 PRIMARY DONNY E T NEW 30 CARE MINUTES CENTERINC
[2017-05-08 12:06] LABS: LYMPH # 1.6 K/mm3 (0.7-4.5); LYMPH % 14.7 % (10-50.0)
--- OUTSIDE RECORDS SUMMARY | 2017-05-08 12:06 | External Medical Summary Rpt ---
Author Author MAGUI Su, MAGUI Su Organization [employer] Address Unknown Phone Unavailable
--- OUTSIDE RECORDS SUMMARY | 2017-05-08 12:06 | External Medical Summary Rpt | CCD ---
Author Author , MAGUI Organization [employer] Address Unknown Phone [email or web address] Immunization Name Date Rout CVX Reac Dose Comm Prov Is Faci e tion ent ider Refu lity Give sed n Infl 09-3 Intr 150 0.5 Hist [facility] uenz 0-20 amus mL oric ART5 ART5 a 16 cula al 91 91 Quad r Info Inj rmat ion - Sour ce Unsp ecif ied Zost 09-3 Subc 121 0.65 Hist [facility] No [facility] er 0-20 utan mL oric ART5 ART5 16 eous al 91 91 Info rmat ion - Sour ce Unsp ecif ied
--- OUTSIDE RECORDS SUMMARY | 2017-05-08 12:06 | External Medical Summary Rpt | CCD ---
Author Author , MAGUI Organization [employer] Address Unknown Phone [email or web address] Immunization Name Date Rout CVX Reac Dose [...]
[2017-05-08 12:13] LABS: HEMOGLOBIN 10.9 g/dL (12.2-16.2)
[2017-05-08 12:30] LABS: BUN 20 mg/dL (7-18)
[2017-05-08 12:39] LABS: GFR (ESTIMATED) 50 ML/MIN (59-)
--- NOTE | 2017-05-08 13:10 | RADIOLOGY REPORT PS360 ---
CT HEAD WITHOUT CONTRAST CT BONE WINDOWS included ORDERING PHYSICIAN : Daylin Georges MD PATIENT AGE: 66 years GENDER: Female PROCEDURE: Routine axial images headwithout contrast. Brain & bone windows HISTORY: DIZZY COMPARISON: No prior head CT. FINDINGS: No acute intracranial findings. No hemorrhage. No mass effect or mass lesion. No subdural nor extra-axial collection. Ventricles & basal cisterns appear satisfactory. Mayo & white matter patterns satisfactory. The posterior fossa appear satisfactory and unremarkable. The skull is intact. Stable frontal bone hyperostosis The visualized portions of the paranasal sinuses are clear. Mastoid air cells, middle ear & IACs are unremarkable. CP angles clear on this noncontrast study. IMPRESSION: No acute intracranial findings.
--- NOTE | 2017-05-08 13:11 | RADIOLOGY REPORT PS360 ---
CHEST-PORTABLE Ordering physician: Daylin Georges MD Age: 66 years Female INDICATION: chest symptomsDIZZY PROCEDURE: CHEST-PORTABLE FINDINGS previous AP supine CXR 2009 utilized for comparison On today's study Lungs well expanded and clear with nothing definitely acute. No pneumothorax. No pleural effusion. Heart upper normal size. Normal pulmonary vascularity. Hilar and mediastinal structures appear satisfactory. Chest wall unremarkable.. Hypertrophic degenerative changes AC joints right greater than left IMPRESSION ----- Lungs clear with no active disease
--- NOTE | 2017-05-08 13:44 | Emergency Room Report ---
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 N Clinical Suspician of Infection? N Mental Status: 1 - Regular (Normal Baseline) Sepsis Risk:Low Sepsis Risk Have you (or family members/close friends) recently traveled outside the [place]? N If Yes, where/when: Have you had exposure to infectious disease within the past month? N TB? Other? Specify: Positional vertigo during PT today. When she moves her head, the room turns. She had elevated BP in PT room, improved on arrival to ED. No chest pain or palpitations. Feels fine now, other than when moving head. No congestion. No cephalgia, no other neurological sx. Chronic back pain. ALLERGIES Coded Allergies: Sulfa (Sulfonamide Antibiotics) (Mild, 05/08/17) ibuprofen (Mild, 05/08/17) Home Medications Reported Medications Spironolactone (Spironolactone) 25 MG NG BID Metoprolol Tartrate (Metoprolol) 12.5 MG PO BID Sitagliptin Phosphate (Januvia) 50 MG PO DAILY Gabapentin (Gabapentin 300MG) 300 MG PO QHS Pravastatin Sodium (Pravachol 20MG) 20 MG PO DAILY Amlodipine Besylate 2.5 MG PO DAILY Mirabegron (Myrbetriq) 25 MG PO DAILY Valsartan (Valsartan 160MG) 160 MG PO DAILY METFORMIN HCL (Metformin) 1,000 MG PO DAILY History Medical History General CAD? No Angina: No MT: No Hypertension? Yes Hyperlipidemia? Yes CHF? No DVT? No PE? No COPD? No Asthma? Yes Anemia? No GERD? No Gastric ulcers? No GI Bleed? No Hernia? No Thyroid Problems? No Hypothyroidism? No CVA? No Seizures? No Diabetes? Yes Insulin Dependent: No Insulin Pump: No Home FSBS? Yes Renal Insuffiency? No End Stage Renal Disease? No UTI? No Stones? No BPH? No GB Disease: No Nephritic Syndrome? No Asplenia? No Hepatitis? No Sickle Cell Disease? No Arthritis? No Migraines? No Cataracts? No Glaucoma? No MRSA? Yes HIV? No TB? No Anxiety? No Depression? No Cancer? No More? No Immunization Hx DT/Tetanus NOT SURE Flu 2YRSorMore Pneumonia 1-4 YRS Surgical Hx Previous Surgery?Y Tonsils CARPEL TUNNEL BOTH WRISTS D & C OR R/T MRSA R GROIN ABSCESS ON BACK OF HEAD Family History Family Hx Diabetes Yes CAD No Hypertension Yes Hyperlipidemia Yes Cancer Yes TB No Social History Smoking Hx Smoker: Never Smoker Tobacco: No Alcohol Alcohol: No Review of Systems All Other Systems Reviewed and Negative ENT see HPI. Cardiovascular see HPI (brief HTN) Musculoskeletal back pain (chronic) Physical Exam Vital Signs Vital Signs Date Time Temp Pulse Resp B/P Pulse O2 O2 Flow FiO2 Ox Delivery Rate 05/08 1137 98.5 72 16 158/96 98 General Appearance normal appearance, WD/WN, no apparent distress, obese Eye Exam - bilateral eye normal exam, bilateral eye PERRL, bilateral eye EOMI Ear, Nose, Throat hearing grossly normal, abnormal TM (R), abnormal TM (L) ( cloudy B;positional vertigo), OP wet Neck normal inspection, non-tender, supple, full range of motion Respiratory Status Yes: trachea midline, chest symmetrical, non tender chest. No: respiratory distress, tender on palpation, use of accessory muscles, pain on inspiration, pain on expiration, productive cough, non productive cough. Lung Sounds bilateral: normal breath sounds, lungs clear. Cardiovascular normal exam, regular rate/rhythm, no peripheral edema, no gallop, no JVD, no murmur, no rub, normal peripheral pulses Peripheral Pulses Pulses normal Yes Gastrointestinal normal bowel sounds, normal exam, non tender, soft, no organomegaly, no pulsatile mass, no guarding, no rebound Extremities non-tender, normal range of motion, normal inspection, normal capillary refill, no calf tenderness, no pedal edema, pelvis stable Strength 5 Upper Ext (L), 5 Upper Ext (R), 5 Lower Ext (L), 5 Lower Ext (R) Neurologic alert, tariff expert II-XII nml as tested, normal exam, no motor/sensory deficits, oriented x 3, speech clear and fluent; positional vertigo; air pollution compliance inspector equal ; speech clear and fluent; NIHSS 0 Glascow Coma Scale Glascow Coma Scale Response Value EYE response: 4 Spontaneously 4 MOTOR response: 6 OBEYS 6 VERBAL response: 5 Oriented & Converses 5 Total 15 Reflexes Reflexes normal Yes DTR 2+ ankle (R), 2+ ankle (L) Skin intact, normal color, warm/dry Medical Decision Making LABS/Meds/Orders Pt receiving controlled substance in ED? No Results/Orders Laboratory Tests 05/08/17 1145: Sodium 140, Potassium 5.0, Chloride 108 H, Carbon Dioxide 22, BUN 20 H, Creatinine 1.1 H, Estimated Creat Clear 105, Estimated GFR (MDRD) 50 L, Glucose 186 H, Calcium 9.2, Total Bilirubin 0.3, AST 14 L, ALT 15, Alkaline Phosphatase 55, Creatine Kinase 26, CK-MB (CK-2) Rel Index 1.9, CK and CKMB Interp < 0.5, Troponin I < 0.02, Total Protein 6.9, Albumin 3.0 L, Globulin 3.9 H, Albumin/Globulin Ratio 0.8 L, WBC 10.6, RBC 3.97 L, Hgb 10.9 L, Hct 35.1 L, MCV 88.6, RDW 13.6, Plt Count 216, MPV 8.9, Gran % 77.7, Gran # 8.2 H, Lymphocytes % 14.7, Monocytes % 4.0, Eosinophils % 2.9, Basophils % 0.6, Lymphocytes # 1.6, Monocytes # 0.4, Eosinophils # 0.3, Basophils # 0.1, PUBS MCHC 30.7 L, MCH 27.2 Current Medication Orders Sig/Quintin Start time Last Medication Dose Route Stop Time Status Admin Sodium Chloride 10 ML PRN PRN 05/08 114 AC IV 05/09 1144 Orders Procedure Date/time Status DIET-NOTHING BY MOUTH 05/[address] HEAD REQ 05/08 1219 Complete ELECTROCARDIOGRAM REQUEST 05/08 1144 Active IV SALINE LOCK 05/08 1144 Active CBC WITH AUTO DIFF 05/08 1144 Complete CARDIAC ENZYMES 05/08 1144 Complete CHEM 12 PROFILE 05/08 1144 Complete [facility] 05/08 UNK Active CM/EKG CM/EKG EKG rate, NSR, rhythm, no evid. of ischemic chgs, no ectopy, normal QRS, normal [place], normal EKG (NSR 69) XRAY/CT/US XRAY/CT/US XRAY chest XR interpretation by reviewed by me (report reviewed) Xray Results normal/NAD, no infiltrates, normal heart size, no hematoma seen, normal lung inflation que CT head CT interpretation by reviewed by me (report reviewed) Time results known: 1344 Departure Departure Time of Disposition 1344 Disposition DC Home or Self Care(routine) Clinical Impression Primary Impression: Positional vertigo of both ears Condition STABLE Referrals MEI GARDNER (Family) Patient Instructions Vertigo Additional Instructions Return to exercise after cleared by family doctor, see family doctor in one to two days, Rx Meclizine, be careful when getting up and down as risk for fall. If Meclizine unhelpful, try over the counter Claritin as needed for fluid behind middle ears. Discharge Counseling Counseled pt/family regarding diagnosis, test results, medications/RX, home care, follow up needs Prescriptions Current Visit Scripts MECLIZINE HCL (Meclizine 25MG) 25 MG PO Q8HP PRN vertigo #10 TABLET ED Critical Care Critical Care No at 1341
--- NOTE | 2017-05-08 13:44 | Emergency Room Report ---
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 N Clinical Suspician of Infection? N Mental Status: 1 - Regular (Normal Baseline) Sepsis Risk:Low Sepsis Risk Have you (or family members/close friends) recently traveled outside the [place]? N If Yes, where/when: Have you had exposure to infectious disease within the past month? N TB? Other? Specify: Positional vertigo during PT today. When she moves her head, the room turns. She had elevated BP in PT room, improved on arrival to ED. No chest pain or palpitations. Feels fine now, other than when moving head. No congestion. No cephalgia, no other neurological sx. Chronic back pain. ALLERGIES Coded Allergies: Sulfa (Sulfonamide Antibiotics) (Mild, 05/08/17) ibuprofen (Mild, 05/08/17) Home Medications Reported Medications Spironolactone (Spironolactone) 25 MG NG BID Metoprolol Tartrate (Metoprolol) 12.5 MG PO BID Sitagliptin Phosphate (Januvia) 50 MG PO DAILY Gabapentin (Gabapentin 300MG) 300 MG PO QHS Pravastatin Sodium (Pravachol 20MG) 20 MG PO DAILY Amlodipine Besylate 2.5 MG PO DAILY Mirabegron (Myrbetriq) 25 MG PO DAILY Valsartan (Valsartan 160MG) 160 MG PO DAILY METFORMIN HCL (Metformin) 1,000 MG PO DAILY History Medical History General CAD? No Angina: No MS: No Hypertension? Yes Hyperlipidemia? Yes CHF? No DVT? No PE? No COPD? No Asthma? Yes Anemia? No GERD? No Gastric ulcers? No GI Bleed? No Hernia? No Thyroid Problems? No Hypothyroidism? No CVA? No Seizures? No Diabetes? Yes Insulin Dependent: No Insulin Pump: No Home FSBS? Yes Renal Insuffiency? No End Stage Renal Disease? No UTI? No Stones? No BPH? No GB Disease: No Nephritic Syndrome? No Asplenia? No Hepatitis? No Sickle Cell Disease? No Arthritis? No Migraines? No Cataracts? No Glaucoma? No MRSA? Yes HIV? No TB? No Anxiety? No Depression? No Cancer? No More? No Immunization Hx DT/Tetanus NOT SURE Flu 2YRSorMore Pneumonia 1-4 YRS Surgical Hx Previous Surgery?Y Tonsils CARPEL TUNNEL BOTH WRISTS D & C OR R/T MRSA R GROIN ABSCESS ON BACK OF HEAD Family History Family Hx Diabetes Yes CAD No Hypertension Yes Hyperlipidemia Yes Cancer Yes TB No Social History Smoking Hx Smoker: Never Smoker Tobacco: No Alcohol Alcohol: No Review of Systems All Other Systems Reviewed and Negative ENT see HPI. Cardiovascular see HPI (brief HTN) Musculoskeletal back pain (chronic) Physical Exam Vital Signs Vital Signs Date Time Temp Pulse Resp B/P Pulse O2 O2 Flow FiO2 Ox Delivery Rate 05/08 1137 98.5 72 16 158/96 98 General Appearance normal appearance, WD/WN, no apparent distress, obese Eye Exam - bilateral eye normal exam, bilateral eye PERRL, bilateral eye EOMI Ear, Nose, Throat hearing grossly normal, abnormal TM (R), abnormal TM (L) ( cloudy B;positional vertigo), OP wet Neck normal inspection, non-tender, supple, full range of motion Respiratory Status Yes: trachea midline, chest symmetrical, non tender chest. No: respiratory distress, tender on palpation, use of accessory muscles, pain on inspiration, pain on expiration, productive cough, non productive cough. Lung Sounds bilateral: normal breath sounds, lungs clear. Cardiovascular normal exam, regular rate/rhythm, no peripheral edema, no gallop, no JVD, no murmur, no rub, normal peripheral pulses Peripheral Pulses Pulses normal Yes Gastrointestinal normal bowel sounds, normal exam, non tender, soft, no organomegaly, no pulsatile mass, no guarding, no rebound Extremities non-tender, normal range of motion, normal inspection, normal capillary refill, no calf tenderness, no pedal edema, pelvis stable Strength 5 Upper Ext (L), 5 Upper Ext (R), 5 Lower Ext (L), 5 Lower Ext (R) Neurologic alert, oncology technician II-XII nml as tested, normal exam, no motor/sensory deficits, oriented x 3, speech clear and fluent; positional vertigo; television antenna installer equal ; speech clear and fluent; NIHSS 0 Glascow Coma Scale Glascow Coma Scale Response Value EYE response: 4 Spontaneously 4 MOTOR response: 6 OBEYS 6 VERBAL response: 5 Oriented & Converses 5 Total 15 Reflexes Reflexes normal Yes DTR 2+ ankle (R), 2+ ankle (L) Skin intact, normal color, warm/dry Medical Decision Making LABS/Meds/Orders Pt receiving controlled substance in ED? No Results/Orders Laboratory Tests 05/08/17 1145: Sodium 140, Potassium 5.0, Chloride 108 H, Carbon Dioxide 22, BUN 20 H, Creatinine 1.1 H, Estimated Creat Clear 105, Estimated GFR (MDRD) 50 L, Glucose 186 H, Calcium 9.2, Total Bilirubin 0.3, AST 14 L, ALT 15, Alkaline Phosphatase 55, Creatine Kinase 26, CK-MB (CK-2) Rel Index 1.9, CK and CKMB Interp < 0.5, Troponin I < 0.02, Total Protein 6.9, Albumin 3.0 L, Globulin 3.9 H, Albumin/Globulin Ratio 0.8 L, WBC 10.6, RBC 3.97 L, Hgb 10.9 L, Hct 35.1 L, MCV 88.6, RDW 13.6, Plt Count 216, MPV 8.9, Gran % 77.7, Gran # 8.2 H, Lymphocytes % 14.7, Monocytes % 4.0, Eosinophils % 2.9, Basophils % 0.6, Lymphocytes # 1.6, Monocytes # 0.4, Eosinophils # 0.3, Basophils # 0.1, PUBS MCHC 30.7 L, MCH 27.2 Current Medication Orders Sig/Quintin Start time Last Medication Dose Route Stop Time Status Admin Sodium Chloride 10 ML PRN PRN 05/08 114 AC IV 05/09 1144 Orders Procedure Date/time Status DIET-NOTHING BY MOUTH 05/[address] HEAD REQ 05/08 1219 Complete ELECTROCARDIOGRAM REQUEST 05/08 1144 Active IV SALINE LOCK 05/08 1144 Active CBC WITH AUTO DIFF 05/08 1144 Complete CARDIAC ENZYMES 05/08 1144 Complete CHEM 12 PROFILE 05/08 1144 Complete 12 LEAD EKG-[facility] (INITIAL) 05/08 UNK Active CM/EKG CM/EKG EKG rate, NSR, rhythm, no evid. of ischemic chgs, no ectopy, normal QRS, normal [place], normal EKG (NSR 69) XRAY/CT/US XRAY/CT/US XRAY chest XR interpretation by reviewed by me (report reviewed) Xray Results normal/NAD, no infiltrates, normal heart size, no hematoma seen, normal lung inflation que CT head CT interpretation by reviewed by me (report reviewed) Time results known: 1344 Departure Departure Time of Disposition 1344 Disposition DC Home or Self Care(routine) Clinical Impression Primary Impression: Positional vertigo of both ears Condition STABLE Referrals MEI GARDNER (Family) Patient Instructions Vertigo Additional Instructions Return to exercise after cleared by family doctor, see family doctor in one to two days, Rx Meclizine, be careful when getting up and down as risk for fall. If Meclizine unhelpful, try over the counter Claritin as needed for fluid behind middle ears. Discharge Counseling Counseled pt/family regarding diagnosis, test results, medications/RX, home care, follow up needs Prescriptions Current Visit Scripts MECLIZINE HCL (Meclizine 25MG) 25 MG PO Q8HP PRN vertigo #10 TABLET ED Critical Care Critical Care No at 134
[2017-05-08] MEDS ORDERED: MECLIZINE 25MG25 MG PO (13:47)
[2017-05-08 13:57] VITALS: BP 130/49
== END 2017-05-08 13:57 | disposition home or self-care (01) ==
LOC: ER 11:34
PROVIDERS: Emergency Medicine
DX: H81.13 Benign paroxysmal vertigo, bilateral (principal)